=== PATIENT | female | born 1985 | race Caucasian/White ===

== ENCOUNTER 2023-04-24 16:02 | Outpatient (CLI) | payer MEDICAID, SELFPAY ==
--- NOTE | 2023-04-24 | US_ITS ---
WS: [id number] US pelv w/transvag [id number] HISTORY: pelvic pain COMPARISON: None available. Uterus: 9.4 cm x 6.1 cm x 4.9 cm. Mildly enlarged anteverted uterus. scar along the lower anterior uterine segment. Uterus is slightly lobulated with a heterogeneous appearance of the entire myometrium. Suspect fibroid uterus. There is at least one identifiable fibroid measuring 1.5 x 1.5 x 1.6 cm in the LEFT lateral uterus. Endometrium: 0.3 cm. Normal endometrium. Mild indistinctness of the junctional zone but it appears pr edominantly intact. Right ovary: 2.4 cm x 2.9 cm x 3.1 cm. Normal size and vascularity, no cystic or solid masses. Left ovary: 3.4 cm x 2.6 cm x 2.3 cm. Normal size and vascularity, no cystic or solid masses. No free fluid in the cul-de-sac. IMPRESSION: 1. Enlarged very heterogeneous uterus. At least 1 fibroid is identified along the LEFT myometrium shauna suring 1.5 x 1.5 x 1.6 cm. The additional heterogeneity throughout the uterus may be additional fibro ids or adenomyosis. 2. Normal size endometrium. No mass.
== END 2023-04-24 16:03 | disposition home or self-care (01) ==
PROVIDERS: PCP Nurse Practitioner Family; Visit Provider Nurse Practitioner Family
DX: N92.4 Excessive bleeding in the premenopausal period (principal)
CPT/HCPCS: 76830; 76856